=== PATIENT | male | born 1935 | race Caucasian/White ===

== ENCOUNTER → 2017-04-12 | Outpatient (CLI) | payer MEDICARE ==
[~2017-04-12] MED LIST: ALCLOMETASONE D; ASCO500 PO; BISA5EC PO; Clobetasol Emol15 GM TP; DOCU100 PO; ERGO400 PO; FAMC500 PO; FAMO20 PO; FISH1000 PO; Flovent Diskus50 MCG; GABA300 PO; GLYMET2.5; GUAI600T33; HYDACE5; HYDACE5 PO; HYDR-86; HYOS0.375T PO; INSU7030P SC; INSUAS7030; INSUAS7030 SC; KETO15TC; LAVAP17G PO; LEVO750 PO; LEVSOD75 PO; LISI10; LORA10ER PO; LOSA50; LOVA20 PO; METANX CAPSULE1 EACH; METO10 PO; NORT25; Nortriptyline H50 MG; OXYACE5T PO; PRED20 PO; PSYL5.85P; ROSI4; TELM40 PO; TERB250 PO
== END ==
LOC: PLD 11:22 → LAB SHORT 11:22
DX: D48.5 Neoplasm of uncertain behavior of skin (principal)
CPT/HCPCS: 88305

== ENCOUNTER → 2018-02-09 | Outpatient (CLI) | payer MEDICARE | END | disposition home or self-care (01) | LOC: LAB 16:20 → LAB SHORT 16:20 | DX: L08.89 Other specified local infections of the skin and subcutaneous tissue (principal); B96.89 Other specified bacterial agents as the cause of diseases classified elsewhere | CPT/HCPCS: 87070; 87205 ==

== ENCOUNTER → 2018-09-18 | Outpatient (CLI) | payer MEDICARE | END | disposition home or self-care (01) | LOC: PLD 14:10 → LAB SHORT 14:10 | DX: L98.9 Disorder of the skin and subcutaneous tissue, unspecified (principal) | CPT/HCPCS: 88305; 88312 ==

== ENCOUNTER → 2020-01-31 | Outpatient (CLI) | payer MEDICARE | END | disposition home or self-care (01) | LOC: PLD 11:30 → LAB SHORT 11:30 | DX: C44.629 Squamous cell carcinoma of skin of left upper limb, including shoulder (principal) | CPT/HCPCS: 88305 ==

== ENCOUNTER → 2020-03-03 | Outpatient (CLI) | payer MEDICARE | LOC: LAB SHORT 14:35 → LAB 14:35 | DX: C44.629 Squamous cell carcinoma of skin of left upper limb, including shoulder (principal) | CPT/HCPCS: 88305 ==

== ENCOUNTER → 2021-08-31 | Outpatient (CLI) | payer MEDICARE | END | disposition home or self-care (01) | LOC: PLD 15:19 → LAB SHORT 15:19 | DX: C44.219 Basal cell carcinoma of skin of left ear and external auricular canal (principal) | CPT/HCPCS: 88305 ==

== ENCOUNTER → 2021-09-17 | Outpatient (CLI) | payer MEDICARE | END | disposition home or self-care (01) | LOC: LAB SHORT 14:53 → PLD 14:53 | DX: C44.219 Basal cell carcinoma of skin of left ear and external auricular canal (principal) | CPT/HCPCS: 88305 ==

== ENCOUNTER → 2022-07-23 | Outpatient (CLI) | payer MEDICARE ==
[2022-07-23 12:41] LABS: BASOPHILS ABSOLUTE AUTO 0.05 K/mm3 (0.00-0.23); BASOPHILS PERCENT AUTO 1 % (0-2); EOSINOPHILS PERCENT AUTO 3 % (0-6); Hematocrit 42.4 % (37.0-53.0); Hemoglobin 14.7 g/dL (13.5-17.5); IMMATURE GRAN ABSOLUTE AUTO 0.02 K/mm3 (0.00-0.10); IMMATURE GRAN PERCENT AUTO 0 % (0-1); LYMPHOCYTES ABSOLUTE AUTO 3.53 K/mm3 (0.84-5.20); LYMPHOCYTES PERCENT AUTO 36 % (21-46); MONOCYTES ABSOLUTE AUTO 0.86 K/mm3 (0.16-1.47); MONOCYTES PERCENT AUTO 9 % (4-13); Mean Corpuscular HGB Conc 34.7 g/dL (31.5-36.5); Mean Corpuscular Volume 98 fL (80-100); Mean Platelet Volume 10.6 fL (9.1-12.4); NEUTROPHILS ABSOLUTE AUTO 4.97 K/mm3 (1.96-9.15); NEUTROPHILS PERCENT AUTO 51 % (41-73); Platelet Count 256 K/mm3 (150-400); RDW Coefficient Variation 12.5 % (11.7-14.2); RDW Standard Deviation 45.4 fL (35.1-46.3); Red Blood Cell Count 4.32 M/mm3 (4.30-5.90); White Blood Cell Count 9.73 K/mm3 (4.00-11.30)
[2022-07-23 13:02] LABS: Albumin/Globulin Ratio 1.2 (0.8-1.8); Bun/Creatinine Ratio 24.6 (12.0-20.0); Calcium, Blood 9.2 mg/dL (8.5-10.1); Creatinine, Blood 0.98 mg/dL (0.60-1.20); Globulin, Blood 3.3 g/dL (2.2-4.0); Potassium, Blood 4.3 mmol/L (3.5-5.5); Thyroid Stimulating Hormone 3.06 uIU/mL (0.360-4.800); Total Protein, Blood 7.3 g/dL (6.4-8.2)
== END | disposition home or self-care (01) ==
LOC: LAB SHORT 11:22 → LAB 11:22
PROVIDERS: Internal Medicine
DX: E03.9 Hypothyroidism, unspecified (principal); E13.65 Other specified diabetes mellitus with hyperglycemia; I10 Essential (primary) hypertension; I35.0 Nonrheumatic aortic (valve) stenosis
CPT/HCPCS: 80053; 83036; 84443; 85025

== ENCOUNTER → 2022-09-01 | Outpatient (CLI) | payer MEDICARE | END | disposition home or self-care (01) | LOC: LAB SHORT 14:35 → PLD 14:35 | DX: D48.5 Neoplasm of uncertain behavior of skin (principal) | CPT/HCPCS: 88305 ==

== ENCOUNTER → 2022-12-09 | Outpatient (CLI) | payer MEDICARE | END | disposition home or self-care (01) | LOC: LAB 12:24 → LAB SHORT 12:24 | DX: L82.0 Inflamed seborrheic keratosis (principal) | CPT/HCPCS: 88305 ==

== ENCOUNTER → 2023-03-23 | Outpatient (CLI) | payer MEDICARE | LOC: LAB 12:31 → LAB SHORT 12:31 | DX: L82.0 Inflamed seborrheic keratosis (principal) | CPT/HCPCS: 88305 ==